=== PATIENT | male | born 1960 | race Caucasian/White ===

== ENCOUNTER 2017-06-24 17:35 | Emergency (ER) | payer OTHER ==
[2017-06-24] MEDS: TETANUS/DIPHTHERIA TOXOID ADULT 0.5 ML VIAL IM (18:15)
== END 2017-06-24 18:54 | disposition home or self-care (01) ==
LOC: NEPD 17:35
DX: S01.81XA Laceration without foreign body of other part of head, initial encounter (principal); W01.0XXA Fall on same level from slipping, tripping and stumbling without subsequent striking against object, initial encounter; Z79.01 Long term (current) use of anticoagulants; Z95.0 Presence of cardiac pacemaker
CPT/HCPCS: 12013; 90471; 90714; 99283-25